=== PATIENT | male | born 1970 | race Caucasian/White ===

== ENCOUNTER 2017-10-21 06:45 | Inpatient (IN) | payer OTHER ==
[2017-10-09 15:10] LABS: HEMATOCRIT 55.3 % (42.0-52.0); HEMOGLOBIN 18.9 gm/dL (14.0-18.0); MCH 32.2 pg (26.0-34.0); MCHC 34.2 g/dL (28.0-37.0); MCV 94.1 fL (80.0-100.0); MPV 8.7 fl. (7.2-11.1); RBC 5.87 mil/uL (4.50-6.00); RDW-CV 13.1 % (10.5-14.5); WBC 8.9 thou/uL (4.0-11.0)
[2017-10-09 15:12] LABS: URINE BILIRUBIN NEGATIVE (Negative); URINE BLOOD NEGATIVE (Negative); URINE CLARITY CLEAR; URINE COLOR YELLOW; URINE GLUCOSE-RANDOM NEGATIVE (Negative); URINE KETONES NEGATIVE (Negative); URINE LEUKOCYTES-REFLEX NEGATIVE (Negative); URINE NITRITE-REFLEX NEGATIVE (Negative); URINE PROTEIN NEGATIVE (Negative); URINE SPECIFIC GRAVITY >= 1.030 (1.005-1.030); URINE UROBILINOGEN 0.2 E.U./dl (0.2-1.0)
[2017-10-09 15:14] LABS: BACTERIA-REFLEX None Seen /HPF (None Seen); CASTS None Seen /LPF (None Seen); CRYSTALS None Seen /LPF (None Seen); SQUAMOUS NONE SEEN /LPF (0-3); URINE RBC 0-2 Rare /HPF (0-2); URINE WBC-REFLEX 0-5 Rare /HPF (0-5)
[2017-10-09 15:16] LABS: PROTIME 10.1 Seconds (9.20-11.50)
[2017-10-09 15:21] LABS: ALBUMIN 3.7 g/dL (3.4-5.0); CALCIUM 8.6 mg/dL (8.5-10.1); CREATININE 1.4 mg/dL (0.6-1.3); POTASSIUM 4.6 mmol/L (3.5-5.1); TOTAL BILIRUBIN 0.4 mg/dL (<0.1-1.0); TOTAL PROTEIN 7.3 g/dL (6.4-8.2)
--- NOTE | 2017-10-09 16:38 | EKG ---
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 : 1970 Requested By: Lane Smith Order Number: [id number] Reading MD: Cristopher Conley Measurements Intervals [place] Rate: 88 P: 25 CO: 120 QRS: 6 QRSD: 88 T: 25 QT: 379 QTc: 459 Interpretive Statements Sinus rhythm Consider left ventricular hypertrophy ST elev, probable normal early repol pattern Tall T, consider metabolic/ischemic abnrm No previous ECG available for comparison Electronically Signed On 10-09-2017 16:37:50 MATCH UP WORKER by Cristopher Conley [email or web address] <ELECTRONICALLY SIGNED> By: Cristopher Conley MD, [facility] 10/09/17 1637 1511 1511 Cristopher Conley MD, FACC /EPI
[~2017-10-21] VITALS: Ht 188 cm; Wt 106.6 kg
[~2017-10-21 06:45] MED LIST: ABILIFY; ACETAMINOPHEN-1 EAC1 PO; IBUPROFEN 200200 M1 PO; MOBIC15 MG; PRISTIQ50 MG PO; [UNRECOGNIZED DRUG - OTHER]
[2017-10-21] MEDS ORDERED: TYLENOL EXTRA500 MG PO (09:08)
[2017-10-21 09:53] VITALS: BP 144/92
[2017-10-21 14:10] VITALS: BP 136/95
[2017-10-21 16:22] VITALS: BP 132/92
[2017-10-21 18:00] VITALS: BP 168/90
--- NOTE | 2017-10-21 18:02 | NUR ---
ASSUMED CARES OF PT FROM SURGERY AT 1410. PT SLEEPING, BED IN LOW LOCKED POSITION. RIGHT HIP ANTERIOR SUPERIOR APPROACH FOR RT HIP DJD. PT REPORTED AT BEDSIDE TO BE A&O X4. HRRR PER AUSCULTATION, LCTAB, AFEBRILE, PERRLA. SKIN INTACT, RIGHT HIP DRESSING C/D/I, NO BRUISING, SOFT TO PALPATION. ICE PACK ON SITE. O2 2L NC POST SURGERY, MONITORING O2 SATS, WNL. PULSES RADIAL AND PEDAL 2+ WNL, CAP REFILL WNL. RIGHT FA IV PATENT TO FLUIDS, 1/2 NS INFUSING 75 ML/HR. PAIN CONTOLLED WITH PERCOCET AT THIS TIME. PT REMAINS DROWSEY BUT RESPONDS TO VOICE APPROPRIATELY. HOURLY ROUNDING CONTINUES. PT STATES HE IS COMFORTABLE AT THIS TIME. WILL CONTINUE TO MONITOR.
--- NOTE | 2017-10-21 18:58 | NUR ---
PT REMAINS STABLE, VSS ON 2L O2 NC. PT IN BED, DRESSING ON RIGHT HIP C/D/I. ICE BAG AT RIGHT SIDE. HOURLY ROUNDS COMPLETED. REPORT TO DRYWALL INSTALLER TO CONTINUE PLAN OF CARES.
[2017-10-22 00:50] VITALS: BP 120/68
[2017-10-22 04:10] VITALS: BP 103/63
[2017-10-22 04:48] LABS: HEMATOCRIT 47.7 % (42.0-52.0); HEMOGLOBIN 16.2 gm/dL (14.0-18.0)
[2017-10-22] MEDS ORDERED: COLACE 100 MG100 MG PO (07:38)
--- NOTE | 2017-10-22 07:42 | NUR ---
PATIENT HAS SLEPT WELL THROUGHOUT THE NIGHT WITHOUT ANY ISSUES. PAIN WELL CONTROLLED. PAIN MEDICATION GIVEN NEEDED AND CHARTED. VSS ON 2L 02 VIA NASAL CANNULA. DRESSING TO RIGHT HIP IS C/D/I, HEMOVAC IN PLACE WITH MINIMAL SEROSANGINOUS DRAINAGE. PEYTON HOSE AND SCD'S IN PLACE. IV IN RIGHT FOREARM-SL. IV ABT GIVEN WITHOUT ANY ADVERSE SIDE EFFECTS NOTED. PATIENT INSTRUCTED TO USE CALL LIGHT WHEN NEEDING ASSISTANCE. HOURLY ROUNDS MADE. WILL CONTINUE WITH PLAN OF CARE AND NURSING TO MONITOR.
[2017-10-22 08:18] VITALS: BP 108/61
[2017-10-22 08:30] VITALS: BP 108/61
--- NOTE | 2017-10-22 13:52 | NUR ---
SPOKE WITH PT.AND WARNER Galdamez. SHE WILL BE WITH HIM AT HOME ALL THE TIME. HE WILL NEED A WALKER. [employer] GOT WALKER AUTH'D WITH INSURANCE. FAXED HER AN ORDER. P.T. CAN DISPENSE ONE TO PT.PRIOR TO DISCHARGE. CALLED IN PRESCRIPTION FOR XARELTO WRITTEN TO [facility]. COPAY IS $25. PT.INFORMED. HE WOULD LIKE TO DO OUTPT.THERAPY THEY ARE MOVING AND ARE AT DIFFERENT ADDRESSES. [facility]ACE CALLED AND SPOKE WITH JOHANA/ NURSE. SHE WILL ASK DRBeatrizWHERE HE PREFERS HE GOES AND HOW MANY TIMES/WEEK . JOHANA WILL CALL PT.AND INFORM. 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
[2017-10-22 14:01] VITALS: BP 108/61
[2017-10-22] MEDS ORDERED: CELEBREX 200 M200 M1 PO (16:33)
[2017-10-22] MEDS ORDERED: XARELTO10 MG PO (16:45)
[2017-10-22] MEDS ORDERED: PERCOCET PO (16:54)
[2017-10-22] MEDS ORDERED: METAMUCIL1 EAC1 PO (16:57)
--- NOTE | 2017-10-22 22:08 | NUR ---
ASSUMED CARES OF PT AT 0700. PT IN BED, BED IN LOW LOCKED POSITION, CALL BUTTON AND PERSONAL ITEMS IN PT REACH. PT A&O X4, HRRR PER AUSCULTATION, LCTAB, PT UP TO CHAIR, AMBULATE WITH PHYS. THERAPY WITH WALKER. RIGHT FA IV PATENT TO FLUIDS. VSS ON RA, AFEBRILE, PERRLA, SKIN INTACT. RIGHT HIP SURGICAL DRESSING C/D/I, NO BRUISING. HEMOVAC PATENT. PT PROGRESSING TOWARDS GOAL. PT CLEARED TO D/C HOME TODAY WITH FAMILY. PAIN CONTROLLED WITH OXYCODONE NEEDED. NO N/V. PT COOPERATIVE/PLEASANT. IV PULLED, PT BELONGINGS PACKED, ROOM CHECKED. DISCHARGE EDUCATION COMPLETED. PRESCRIPTIONS GIVEN WITH MED EDUCATION COMPLETED. QUESTIONS ANSWERED. PT ESCORTED VIA W/C WITH NURSING STAFF AND FAMILY TO CAR TO GO HOME. PT STABLE AT DISCHARGE. DISCHARGE COMPLETE AT 1705. HOURLY ROUNDING COMPLETED.
--- NOTE | 2017-10-23 11:43 | S ---
[address] [address] SURGICAL PATH RPT PROCEDURE Name: HUBER SCHAEFFER Room: [address] IN ..#: [id number] Admission: 10/21/17 Date of : 70 Discharge: 10/22/17 Report #: [id number] Path Case #: [id number] PATHOLOGY REPORT COLLECTION DATE: 10/21/2017 RECEIVED DATE: 10/21/2017 SUBMITTING PHYS: Dr. Lane Smith II OTHER PHYS: Dr. Griffin Pires SPECIMEN(S) RECEIVED: A.Right hip bone and tissue * * * * * * * * * * * * FINAL DIAGNOSIS: Right hip bone and tissue: - Benign synovium and dense fibrous connective tissue and benign femoral head including abundant hematopoietic elements with prominent osteonecrosis (avascular necrosis) and severe microcystic degenerative changes. (MAKENNA:familia; 10/23/2017) PATHOLOGIST: Keagan Martin M.D. REPORT ELECTRONICALLY SIGNED BY: Keagan Martin M.D. DATE/TIME: 10/23/2017 11:42 * * * * * * * * * * * * GROSS PATHOLOGY: Received in formalin labeled "Huber Schaeffer, right hip bone and tissue," is a femoral head measuring 5.7 x 5.5 x 5.7 cm in greatest dimensions with scant attached soft tissue. The articular surface is smooth to granular and pale nassar to dark brown in appearance, displaying a well-circumscribed area of focal eburnation/pitting measuring 5.0 x 4.3 cm. Sectioning the bone reveals pale yellow to hemorrhagic cut surfaces. Reconditioning Associate tissue is submitted in cassette A1, following decalcification. (DAC; 10/22/2017) CLINICAL HISTORY: Right hip degenerative joint disease INITIAL CPT CODE(S): A; 50964, 81434 Professional services performed by [facility] at [facility], [address] [place] [address], [place] [address]. Technical services performed by [facility] at [address] [place] [address], [facility] [address] [address]. [place] [address] SURGICAL PATH RPT PROCEDURE Name: HUBER SCHAEFFER Room: [address] IN M.R.#: [id number] Admission: 10/21/17 Date of : 70 Discharge: 10/22/17 Report #: [id number] Path Case #: [id number] [facility] [address] [address] PHONE: [phone] DIRECTOR: Carl Villa M.D. * * * END OF REPORT * * *
--- NOTE | 2017-11-04 08:37 | OP ---
[facility] [address] [place] [address] OPERATIVE REPORT Name: HUEBR SCHAEFFER Room: [address] IN .R.#: [id number] Admission: 10/21/17 Attend Phys: Nichelle Tesfaye Discharge: 10/22/17 Date of : 70 Report #: [id number] THIS REPORT FOR: //name// CC: TAMY physician/PCP Lane Pires DATE OF SERVICE: 10/21/2017 PREOPERATIVE DIAGNOSIS: Right hip osteoarthritis with avascular necrosis. POSTOPERATIVE DIAGNOSIS: Right hip osteoarthritis with avascular necrosis. PROCEDURE: Right total hip arthroplasty with ceramic on polyethylene. SURGEON: Lane Smith II, DO SEWER AND INSPECTOR: JESS Bryan ANESTHESIA: General endotracheal. ESTIMATED BLOOD LOSS: 400 mL. ANTIBIOTICS: Ancef preoperatively. DRAINS: Medium Hemovac. COMPLICATIONS: None. DISPOSITION: The patient stable to recovery room IMPLANTS: Listed in the operative record and progress note. BRIEF HISTORY: The patient was seen in the preoperative area. Preop H and P was performed and updated. The patient's site was marked, questions were answered, risks and benefits were discussed with the patient in detail about the procedure. The patient wished to proceed and assumed all risks. DESCRIPTION OF PROCEDURE: The patient was taken to the operative suite and placed supine on the operating table and given appropriate anesthesia. The patient's operative hip was placed in the [place] table leg encarnacion and sterilely prepped and draped in supine position. Surgery began by a longitudinal incision over the anterior portion of the hip. This was carried down through the subcutaneous tissues. A small aniyah was then made in the tensor fascia. It was then split along with his fibers and retracted laterally. An H capsulotomy was then performed and careful hemostasis was maintained [place] [address] OPERATIVE REPORT Name: HUBER SCHAEFFER Room: [address]#: [id number] Admission: 10/21/17 Attend Phys: Nichelle Tesfaye Discharge: 10/22/17 Date of : 70 Report #: [id number] Aquamantys. The head and neck cutting alignment guide was then checked with fluoroscopic guidance. Appropriate cut was made in the head and neck and this was removed. Attention was then turned to the acetabulum. Excess labrum was removed. It was then reamed in sequential fashion up to the appropriate size. This showed to have excellent bleeding bone, excellent position on fluoroscopic guidance. The acetabular cup was then malleted in position and secured with cancellous screws. The metal liner was then applied. The patient's leg was then rotated and extended in the [place] table to expose the femur. It was then broached in sequential fashion up to appropriate size. The appropriate neck was then trialed with appropriate head length and shown to have excellent fit and fill with excellent stability of the hip through all range of motion. These trials were removed. The final stem was then malleted in position. It was introduced in appropriate fashion, checked with the C-arm for appropriate leg length and shown to have excellent leg length throughout the exam without evidence of dislocation upon range of motion and shuck testing. The wound was then copiously irrigated. Hemostasis was maintained with electrocautery and Aquamantys. The pain cocktail was injected, PRP gel was sprayed throughout the internal aspects of the hip and the drain was activated. The H capsulotomy was then closed utilizing #1 Vicryl in [id number]-dg-[id number] fashion. Tensor fascia was closed with #1 Vicryl in running fashion. Skin was closed with 2-0 Vicryl and running 3-0 Monocryl. Dermabond and sterile dressing applied. The patient transferred to recovery room in stable condition. Counts were correct throughout the procedure. <ELECTRONICALLY SIGNED> By: Lane Smith II, DO 11/04/17 0837 2217 [id number] Smith II, DO /nt
== END 2017-10-22 17:05 | disposition home or self-care (01) | DRG 470 ==
LOC: M.PRE 06:45 → M.TBA 08:58 → M.ORTHSURG 08:58 → M.PRE 09:49 → M.ORTHSURG 13:57 → M.PRE 16:00 → M.ORTHSURG 10-22 17:05
PROVIDERS: Orthopaedic Surgery; ADMIT Internal Medicine
PROC: 0SR904Z Replacement of Right Hip Joint with Ceramic on Polyethylene Synthetic Substitute, Open Approach (ICD-10-PCS; principal; 2017-10-21)
DX: M16.11 Unilateral primary osteoarthritis, right hip (principal); M87.851 Other osteonecrosis, right femur; F90.9 Attention-deficit hyperactivity disorder, unspecified type; N18.3 Chronic kidney disease, stage 3 (moderate); F98.8 Other specified behavioral and emotional disorders with onset usually occurring in childhood and adolescence; Z79.82 Long term (current) use of aspirin; Z79.899 Other long term (current) drug therapy; Z72.89 Other problems related to lifestyle; Z91.013 Allergy to seafood; Z85.828 Personal history of other malignant neoplasm of skin; Z28.21 Immunization not carried out because of patient refusal

== ENCOUNTER 2018-01-06 06:29 | Inpatient (IN) | payer OTHER ==
[2017-12-24 16:14] LABS: HEMOGLOBIN 17.8 gm/dL (14.0-18.0); MCHC 34.9 g/dL (28.0-37.0); MCV 94.6 fL (80.0-100.0); MPV 8.2 fl. (7.2-11.1); RBC 5.4 mil/uL (4.50-6.00); RDW-CV 14.3 % (10.5-14.5); WBC 7.9 thou/uL (4.0-11.0)
[2017-12-24 16:17] LABS: URINE BILIRUBIN NEGATIVE (Negative); URINE BLOOD NEGATIVE (Negative); URINE CLARITY CLEAR; URINE COLOR YELLOW; URINE GLUCOSE-RANDOM NEGATIVE (Negative); URINE KETONES TRACE (Negative); URINE LEUKOCYTES-REFLEX NEGATIVE (Negative); URINE NITRITE-REFLEX NEGATIVE (Negative); URINE PROTEIN TRACE (Negative); URINE SPECIFIC GRAVITY >= 1.030 (1.005-1.030); URINE UROBILINOGEN 0.2 E.U./dl (0.2-1.0)
[2017-12-24 16:40] LABS: ALBUMIN 3.8 g/dL (3.4-5.0); CALCIUM 8.7 mg/dL (8.5-10.1); CREATININE 1.2 mg/dL (0.6-1.3); POTASSIUM 3.9 mmol/L (3.5-5.1); TOTAL BILIRUBIN 0.4 mg/dL (<0.1-1.0); TOTAL PROTEIN 7.2 g/dL (6.4-8.2)
[~2018-01-06] VITALS: Ht 188 cm; Wt 106.6 kg
[~2018-01-06 06:29] MED LIST changes: +CELEBREX 200 M200 M1 PO; +COLACE 100 MG100 MG PO; +METAMUCIL1 EAC1 PO; +PERCOCET PO; +TYLENOL EXTRA500 MG PO; +XARELTO10 MG PO
[2018-01-06 12:00] VITALS: BP 145/101
[2018-01-06 15:47] VITALS: BP 143/92
--- NOTE | 2018-01-06 16:01 | NUR ---
PT ARRIVED TO UNIT. PAIN WELL CONTROLLED. DENIES N/V. IVF STARTED. HEMOVAC DRAINING. PT ORIENTED TO ROOM,CALL LIGHT WITHIN REACH
--- NOTE | 2018-01-06 17:16 | NUR ---
PT RESTING IN BED. VOIDING PER URINAL. TOLERATING PO WELL. PAIN WELL CONTROLLED WITH PO MEDS. IVF INFUSING
[2018-01-06 20:15] VITALS: BP 117/78
[2018-01-07 00:37] VITALS: BP 123/71
[2018-01-07 02:07] LABS: HBsAG-EMPLOYEE EXPOSURE Negative (Negative)
[2018-01-07 03:50] VITALS: BP 116/77
[2018-01-07 04:35] LABS: HEMOGLOBIN 16.6 gm/dL (14.0-18.0)
--- NOTE | 2018-01-07 05:06 | NUR ---
PATIENT REMAINS ALERT AND ORIENTED X4 THROUGHOUT SHIFT. VITAL SIGNS STABLE ON ROOM AIR. CONTINUOUS PULSE OX IN PLACE. IV PATENT IN THE LEFT FOREARM INFUSING AT 75 ML/HR. IV ALSO PATENT IN THE RIGHT FOREARM SALINE LOCKED. HEMOVAC IN PLACE TO LEFT HIP AND PATENT. BILATERAL PEYTON HOSE AND FOOT SCD'S IN PLACE. PATIENT HAS NOT TRANFERRED THIS SHIFT. TOLERATING REGULAR DIET. POST OP DRESSING C/D/I. REPOSITIONING SELF IN BED. PAIN MANAGED WITH PO MEDICATION PER ORDERS. DENIES NAUSEA. HOURLY ROUNDING COMPLETE. FALL PRECAUTIONS IN PLACE. CALL LIGHT WITHIN REACH. NURSING WILL CONTINUE TO MONITOR.
[2018-01-07 08:00] VITALS: BP 123/69
--- NOTE | 2018-01-07 12:00 | NUR ---
SPOKE WITH PT.IN ROOM. DAD AT BEDSIDE. PT.SAID HE DID WELL IN OCTOBER AFTER FIRST JT.SURGERY. HE WAS PLEASED. HE HAS A WALKER FROM LAST TIME. HE WENT TO [facility] OUTPT.PHYSICAL THERAPY AFTER HIS LAST SURGERY. HE WOULD LIKE TO DO THIS AGAIN. HE WILL CALL THEM HIM SELF TO SET UP APPTS. HE IS NORMALLY INDEPENDENET AT HOME. HIS S.O. WILL BE WITH HIM TO ASSIST IF NEEDED. PHARMACY IS [facility] [address] IN [place]. 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 PT.TO BE DISCHARGED TODAY.
[2018-01-07] MEDS ORDERED: XARELTO10 MG PO ×2 (14:17→15:02)
[2018-01-07] MEDS ORDERED: HYDROCODON-ACE1 EAC7 PO (14:17)
[2018-01-07] MEDS ORDERED: PERCOCET PO (15:01)
[2018-01-07 15:04] VITALS: BP 123/69
[2018-01-07 15:45] VITALS: BP 123/69
--- NOTE | 2018-01-07 20:23 | NUR ---
I ASSUMED CARE OF THE PATIENT AT 0700. HE IS ALERT AND ORIENTED X4 AND UP AD NISHI. DAD IS AT THE BEDSIDE MOST OF THE DAY. HOURLY ROUNDING WAS COMPLETED AND PATIENT NEEDS ARE MET. BED IS IN THE LOW LOCKED POSITION AND CALL LIGHT IS IN REACH. DRESSING IS C/D/I. HEMOVAC WAS PULLED SUCCESSFULLY AND PRESSURE DRESSING WAS APPLIED. BOTH IV'S WERE D/C'D PRIOR TO D/C AT 1545. HE IS COMPLIANT. DISCHARGED UNDERSTOOD AND HIS DAD WAS HIS STAFF ELECTRICAL ENGINEER.
--- NOTE | 2018-01-27 11:47 | OP ---
[facility] [address] [place] [address] OPERATIVE REPORT Name: HUBER SCHAEFFER Room: [address] IN M.R.#: [id number] Admission: 01/06/18 Attend Phys: Nichelle Tesfaye Discharge: 01/07/18 Date of : 70 Report #: [id number] THIS REPORT FOR: //name// CC: TAMY physician/PCP Lane Pires DATE OF SERVICE: 01/06/2018 PREOPERATIVE DIAGNOSIS: Left hip osteoarthritis. POSTOPERATIVE DIAGNOSIS: Left hip osteoarthritis. PROCEDURE: Left total hip arthroplasty. ANESTHESIA: General endotracheal. ESTIMATED BLOOD LOSS: 650 mL, with 300 mL given back through Cell Saver. ANTIBIOTICS: Ancef preoperatively. DRAINS: Medium Hemovac. COMPLICATIONS: None. CONDITION: The patient is stable to recovery room. IMPLANTS: Listed in the operative record and progress note. BRIEF HISTORY: The patient was seen in preoperative area, preoperative H and P were performed. Site was marked, questions were answered. Risks and benefits were discussed with the patient in detail about the surgery and wished to proceed and assumed all risks. DESCRIPTION OF PROCEDURE: The patient was taken to the operative suite, placed supine on the operating table and given appropriate anesthesia. The patient was taken to the operative room and placed in the [place] table leg encarnacion and sterilely prepped and draped in the supine position. Surgery was begun via a longitudinal incision over the anterior margin of the hip. This was carried down through subcutaneous tissues. A small aniyah was made at the tensor fascia. It was then split along its fibers and retracted laterally. An H capsulotomy was then performed. Careful hemostasis was maintained with electrocautery and Aquamantys. The head and neck cutting alignment guide was checked with fluoroscopic guidance. Appropriate cut was made to the head and neck, and this was then removed. Attention was turned to the acetabulum. Excess labrum was removed. It was then reamed in sequential fashion [place] [id number] OPERATIVE REPORT Name: HUBER SCHAEFFER Room: [address] IN ..#: [id number] Admission: 01/06/18 Attend Phys: Nichelle Tesfaye Discharge: 01/07/18 Date of : 70 Report #: [id number] It showed excellent bleeding bone and excellent position on fluoroscopic guidance. The acetabular cup was then malleted into position and secured with cancellous screws. Metal liner was then applied. The patient's leg was then rotated and extended on the [place] table to expose the femur. It was then broached in sequential fashion up to the appropriate size. The appropriate neck was then trialed with the appropriate head length and shown to have excellent fit and fill with excellent stability of the hip through all range of motion. These trials were removed. The final stem was then malleted into position. It was reduced in appropriate fashion, checked it with C-arm for appropriate leg length, and it showed excellent leg lengths through all range of motion on exam without evidence of dislocation on range of motion and shuck testing. Wound was then copiously irrigated. Hemostasis was obtained with electrocautery and Aquamantys. The pain cocktail was injected. PRP gel was sprayed throughout internal aspect of the hip and drain was activated. The H-capsulotomy was closed utilizing 1 Vicryl in spinbd-of-uexwz fashion. Tensor fascia was closed with 1 Vicryl in running fashion. Skin was closed with 2-0 Vicryl and running 3-0 Monocryl. Dermabond dressing applied. The patient was transferred to recovery room in stable condition. Counts were correct throughout the procedure. <ELECTRONICALLY SIGNED> By: Lane Smith II, DO 01/27/18 1147 0837 0926Lane Smith II, DO /nt
--- NOTE | 2018-04-01 15:08 | PATH ---
[address] [place] [address] PATHOLOGY RPT PROCEDURE Name: HUBER SCHAEFFER Room: [address] IN M.R.#: [id number] Admission: 01/06/18 Date of : 70 Discharge: 01/07/18 Report #: [id number] Path Case #: [id number] [facility] Accession Number: [id number] . 01 Material submitted: . LEFT FEMORAL HEAD . 01 Clinical history: . Left hip DJD . 02 Diagnosis: Left femoral head: - Benign synovium and dense fibrous connective tissue and benign femoral head/neck tissues including abundant hematopoietic elements, with severe degenerative changes. (MAKENNA:db; 01/08/2018) LBQ/01/08/2018 . 02 Electronically signed: . Keagan Martin MD, Pathologist NPI- [id number] . 01 Gross description: . The specimen is received in formalin, labeled "Huber Schaeffer, left femoral head with bone and tissue", is a femoral head measuring 6.0 x 5.0 x 5.0 cm with attached neck measuring 2.0 cm in length by 4.2 x 3.0 cm, and having a flat resection margin. The articular surface has an area of eburnation measuring 3.9 x 2.5 cm and a 1.6 x 1.2 x 0.6 cm ligament of femur. Sectioning reveals thinning of the articular cartilage corresponding to the eburnation and the remaining parenchyma is yellow trabeculated. Peripheral osteophytes are present. Also within the container are multiple irregular fragments of hope-white rubbery fibrous tissue and hemorrhagic bone fragments that aggregately measure 8.5 x 6.0 x 3.0 cm. Algebraist sections are submitted in A1 (femoral head) and A2 (additional fragment within the container) after decalcification. . ([facility]; 01/06/2018) SHS/SHS . 02 Pathologist provided ICD-10: M16.12 . 02 CPT . 487611, 188379 Performed at: [address] [facility] [place] [id number] MD Christo Ortega MD Phone: [phone] [place] [address] PATHOLOGY RPT PROCEDURE Name: HUBER SCHAEFFER Room: [address] IN M.R.#: [id number] Admission: 01/06/18 Date of : 70 Discharge: 01/07/18 Report #: [id number] Path Case #: [id number] Performed at: [address] [place] [id number] MD Keagan Martin MD Phone: [phone]
== END 2018-01-07 15:45 | disposition home or self-care (01) | DRG 470 ==
LOC: M.PRE 06:29 → M.ORTHSURG 07:46 → M.TBA 07:46 → M.SUR 10:01 → EDSTATUS 10:02 → M.PRE 10:04 → M.ORTHSURG 12:14 → M.PRE 15:03 → M.ORTHSURG 01-07 15:45
PROVIDERS: Orthopaedic Surgery; Specialist; ADMIT Internal Medicine
PROC: 0SRB03A Replacement of Left Hip Joint with Ceramic Synthetic Substitute, Uncemented, Open Approach (ICD-10-PCS; principal; 2018-01-06)
DX: M16.12 Unilateral primary osteoarthritis, left hip (principal); Z96.641 Presence of right artificial hip joint; F90.9 Attention-deficit hyperactivity disorder, unspecified type; Z91.013 Allergy to seafood; Z85.828 Personal history of other malignant neoplasm of skin; Z91.041 Radiographic dye allergy status

== ENCOUNTER 2018-02-04 02:28 | Emergency (ER) | payer OTHER ==
[~2018-02-04] VITALS: Ht 188 cm; Wt 106.6 kg
[~2018-02-04 02:28] MED LIST changes: +HYDROCODON-ACE1 EAC7 PO
[2018-02-04 03:39] VITALS: BP 132/74
== END 2018-02-04 03:41 | disposition home or self-care (01) ==
LOC: M.ERS 02:28
DX: S61.012A Laceration without foreign body of left thumb without damage to nail, initial encounter (principal); F90.9 Attention-deficit hyperactivity disorder, unspecified type; Z91.013 Allergy to seafood; Z85.828 Personal history of other malignant neoplasm of skin; W25.XXXA Contact with sharp glass, initial encounter; Y93.89 Activity, other specified; Y92.89 Other specified places as the place of occurrence of the external cause; Y99.8 Other external cause status

== ENCOUNTER 2019-04-17 03:37 | Emergency (ER) | payer OTHER ==
[~2019-04-17] VITALS: Ht 188 cm; Wt 104.3 kg
[2019-04-17] MEDS ORDERED: IBUPROFEN 800800 M1 PO (04:19)
[2019-04-17] MEDS ORDERED: NORCO 5-325 TA1 EAC1 PO (04:19)
[2019-04-17 04:28] VITALS: BP 130/95
== END 2019-04-17 04:29 | disposition home or self-care (01) ==
LOC: M.ERS 03:37
DX: K08.89 Other specified disorders of teeth and supporting structures (principal)

== ENCOUNTER 2021-08-02 10:29 | Inpatient (IN) | payer OTHER ==
[~2021-08-02] VITALS: Ht 188 cm; Wt 119.7 kg
[~2021-08-02 10:29] MED LIST changes: +IBUPROFEN 800800 M1 PO; +NORCO 5-325 TA1 EAC1 PO
[2021-08-02 10:37] VITALS: BP 116/92
[2021-08-02 11:36] LABS: INFLUENZA A ANTIGEN Negative (Negative); INFLUENZA B ANTIGEN Negative (Negative)
[2021-08-02 13:21] LABS: HEMATOCRIT 44.8 % (42.0-52.0); MCH 29.2 pg (26.0-34.0); MCHC 33.5 g/dL (28.0-37.0); MCV 87.2 fL (80.0-100.0); MPV 8.9 fl. (7.2-11.1); NUCLEATED RBCS 0 /100WBC; PLATELET COUNT* 286 thou/uL (150-400); RBC 5.14 mil/uL (4.50-6.00); RDW-CV 15.9 % (10.5-14.5); WBC 14.8 thou/uL (4.0-11.0)
[2021-08-02 14:01] LABS: ABSOLUTE LYMPHOCYTES 0.7 thou/uL (0.8-5.3); PLATELET ESTIMATE ADEQUATE
[2021-08-02] MEDS ORDERED: IBU600 MG PO (14:43)
[2021-08-02 14:50] LABS: ALBUMIN 2.3 g/dL (3.4-5.0); CALCIUM 8.2 mg/dL (8.5-10.1); CREATININE 1.3 mg/dL (0.6-1.3); POTASSIUM 3.8 mmol/L (3.5-5.1); TOTAL BILIRUBIN 0.6 mg/dL (<0.1-1.0); TOTAL PROTEIN 6.6 g/dL (6.4-8.2)
--- NOTE | 2021-08-02 15:52 | NUR ---
GETTING PT READY FOR LP. CONSENT SIGNED.
[2021-08-02 16:48] LABS: CSF GLUCOSE 59 mg/dl (40-70); CSF PROTEIN 72.7 mg/dl (15-45)
[2021-08-02 17:14] LABS: CSF CLARITY CLEAR; CSF COLOR COLORLESS; CSF RBC 1 /mm3; CSF WBC 1 /mm3 (0-10); VOLUME 10 ml
[2021-08-02 19:47] VITALS: BP 124/81
[2021-08-02 21:36] LABS: URINE BILIRUBIN NEGATIVE (Negative); URINE BLOOD NEGATIVE (Negative); URINE CLARITY CLEAR; URINE COLOR YELLOW; URINE GLUCOSE-RANDOM NEGATIVE (Negative); URINE KETONES 1+ (Negative); URINE LEUKOCYTES NEGATIVE (Negative); URINE NITRITE NEGATIVE (Negative); URINE PROTEIN 2+ (Negative)
[2021-08-02 21:45] LABS: HYALINE CASTS 4-10 Moderate /LPF (None Seen); MUCUS 0-3 Light strn/LPF (None Seen); URINE WBC 6-15 Few /HPF (0-5)
[2021-08-02 21:46] LABS: SQUAMOUS NONE SEEN /LPF (0-3); URINE RBC 0-2 Rare /HPF (0-2)
[2021-08-02 21:47] LABS: BACTERIA None Seen /HPF (None Seen); CRYSTALS None Seen /LPF (None Seen)
[2021-08-02 23:45] VITALS: BP 117/69
[2021-08-03 03:45] VITALS: BP 108/66
[2021-08-03 07:45] VITALS: BP 127/82
[2021-08-03 10:27] LABS: ABSOLUTE BASOPHILS 0.1 thou/uL (0.0-0.2); ABSOLUTE LYMPHOCYTES 0.4 thou/uL (0.8-5.3); ABSOLUTE MONOCYTES 0.8 thou/uL (0.0-1.2); ABSOLUTE NEUTROPHILS 14.3 thou/uL (1.6-8.1); BASOPHILS 0.3 %; HEMATOCRIT 48.2 % (42.0-52.0); HEMOGLOBIN 15.7 gm/dL (14.0-18.0); LYMPHOCYTES 2.7 %; MCH 28.7 pg (26.0-34.0); MCHC 32.5 g/dL (28.0-37.0); MCV 88.2 fL (80.0-100.0); MONOCYTES 4.9 %; NUCLEATED RBCS 0 /100WBC; PLATELET COUNT* 298 thou/uL (150-400); POLYS 92.1 %; RBC 5.46 mil/uL (4.50-6.00); RDW-CV 16.5 % (10.5-14.5); WBC 15.5 thou/uL (4.0-11.0)
[2021-08-03 11:45] VITALS: BP 99/62
--- NOTE | 2021-08-03 12:05 | NUR ---
approx. 1130 I.D. DRENCHER TALKED TO PT VIA COMPUTER BOT.
[2021-08-03 15:45] VITALS: BP 118/67
[2021-08-03 17:38] VITALS: BP 118/67
[2021-08-03 20:16] VITALS: BP 123/72
[2021-08-04 01:35] VITALS: BP 113/72
--- NOTE | 2021-08-04 04:30 | NUR ---
PT A&OX4, VSS ON ROOM AIR, IV FLUIDS INFUSING ORDERED, PT UP WITH ASSIST, NO CO PAIN OR DISCOMFORT. PT SLEEPING WELL, WILL CONTINUE TO MONITOR. SR ON TELE MONITOR.
[2021-08-04 05:08] VITALS: BP 104/60
[2021-08-04 08:00] VITALS: BP 130/83
[2021-08-04 09:09] LABS: ABSOLUTE LYMPHOCYTES 0.9 thou/uL (0.8-5.3); ABSOLUTE MONOCYTES 0.9 thou/uL (0.0-1.2); ABSOLUTE NEUTROPHILS 10.1 thou/uL (1.6-8.1); BASOPHILS 0.4 %; EOSINOPHILS 0.3 %; HEMATOCRIT 43.8 % (42.0-52.0); HEMOGLOBIN 14.3 gm/dL (14.0-18.0); LYMPHOCYTES 7.6 %; MCH 28.4 pg (26.0-34.0); MCHC 32.5 g/dL (28.0-37.0); MCV 87.5 fL (80.0-100.0); MONOCYTES 7.6 %; MPV 8.4 fl. (7.2-11.1); NUCLEATED RBCS 0 /100WBC; PLATELET COUNT* 302 thou/uL (150-400); POLYS 84.1 %; RBC 5.01 mil/uL (4.50-6.00); RDW-CV 16.3 % (10.5-14.5); WBC 12.1 thou/uL (4.0-11.0)
[2021-08-04 09:34] LABS: ALBUMIN 2.3 g/dL (3.4-5.0); CREATININE 1.3 mg/dL (0.6-1.3); MAGNESIUM 2.2 mg/dL (1.8-2.4); POTASSIUM 3.7 mmol/L (3.5-5.1); TOTAL BILIRUBIN 0.3 mg/dL (<0.1-1.0); TOTAL PROTEIN 6.4 g/dL (6.4-8.2)
[2021-08-04] MEDS ORDERED: NORTRIPTYLINE H10 M1 PO (11:06)
[2021-08-04 12:00] VITALS: BP 124/74
[2021-08-04 12:15] VITALS: BP 130/83
--- NOTE | 2021-08-04 13:12 | NUR ---
DISCHARGE ORDERS RECEIVED. DISCHARGE INSTRUCTIONS, CARE NOTES, E SCRIPTS AND FOLLOW UP APPTS GIVEN TO PT. PT COMMUNICATES UNDERSTANDING OF DISCHARGE TEACHING. IV AND SHOTBLASTER REMOVED. PT DISCHARGED WITH ALL BELONGINGS AND PAPERWORK VIA WHEELCHAIR WITH NURSING STAFF TO SIGNIFICANT OTHER VEHICLE.
[2021-08-05 07:06] LABS: CSF CHLORIDE 123 mmol/L (118-131)
[2021-08-09 13:08] LABS: CSF LDH 14 IU/L (())
== END 2021-08-04 13:14 | disposition home or self-care (01) | DRG 641 ==
LOC: M.ERS 10:29 → M.TBA-ER 16:03 → M.2W 16:03 → M.TBA-ER 19:19 → M.2W 08-03 18:29
PROVIDERS: Emergency Medicine; Nurse Practitioner Family; Physician Assistant; ADMIT Internal Medicine; ATTEND Internal Medicine
PROC: 009U3ZX Drainage of Spinal Canal, Percutaneous Approach, Diagnostic (ICD-10-PCS; principal; 2021-08-02)
DX: E86.0 Dehydration (principal); R65.10 Systemic inflammatory response syndrome (SIRS) of non-infectious origin without acute organ dysfunction; R51.9 Headache, unspecified; D72.829 Elevated white blood cell count, unspecified; Z96.641 Presence of right artificial hip joint; Z20.822 Contact with and (suspected) exposure to COVID-19; Z91.013 Allergy to seafood